=== PATIENT | male | born 1950 | race Caucasian/White ===

== ENCOUNTER 2019-12-28 07:42 | Outpatient (CLI) | payer MEDICARE, SELFPAY ==
--- NOTE | ~2019-12-28 | CT_ITS ---
EXAMINATION: CT soft tissue neck w con DATE: 12/28/2019 08:39 INDICATION: Neck mass. TECHNIQUE: Computed tomography (CT) of the neck was performed with 75 mL Omnipaque-350 intravenous co ntrast. Automated exposure control and iterative reconstruction technique were employed. The dose-ronald gth product was 486.01 mGy-cm. COMPARISON: None FINDINGS: In the posterior neck to the right of midline, there is a 2.5 x 2.0 cm subepidermal mass wi th attenuation of 19 HU. There is plaque in the proximal internal carotid arteries with less than 50% stenosis relative to normal distal artery lumen diameters. There are no pathologically enlarged lymp h nodes. There is mild mucosal thickening in the paranasal sinuses. The mastoid air cells are normal. There is moderate cervical spondylosis. IMPRESSION: 1. 2.5 cm subepidermal mass in right posterior neck, likely a sebaceous cyst. Reviewed, dictated and finalized at location A. PHYSICIAN
[2019-12-28 08:29] LABS: Blood Urea Nitrogen 28 mg/dL (8-26); Estimated Glomerular Filt Rate 35
== END 2019-12-28 07:43 | disposition home or self-care (01) ==
PROVIDERS: PCP Internal Medicine; Visit Provider Surgery
DX: R22.1 Localized swelling, mass and lump, neck (principal)
CPT/HCPCS: 70491; Q9967

== ENCOUNTER 2020-01-16 10:06 | Outpatient (CLI) | payer MEDICARE, SELFPAY ==
--- NOTE | 2020-01-16 10:14 | ECG_ITS ---
Measurements Intervals [place] Rate: 68 P: 14 SC: 151 QRS: -35 QRSD: 92 T: 19 QT: 384 QTc: 411 Interpretive Statements SINUS RHYTHM LEFT AXIS DEVIATION POOR R WAVE PROGRESSION, ANTERIOR LEADS BORDERLINE ECG Electronically Signed On 01-16-2020 10:33:33 CONTACT LENS INSPECTOR by Norbert Mcgrath D.O.
[2020-01-16 10:44] LABS: Blood Urea Nitrogen 27 mg/dL (9-20); Calcium 9.5 mg/dL (8.4-10.2); Carbon Dioxide 31 mmol/L (22-30); Chloride 96 mmol/L (98-107); Estimated Glomerular Filt Rate 43; Glucose 198 mg/dL (75-110); Potassium 4.9 mmol/L (3.4-5.0); Sodium 139 mmol/L (137-145)
[2020-01-16 10:46] LABS: Basophils Absolute Auto 0.1 K/mm3 (0.0-0.1); Basophils Percent Auto 0.8 % (0.2-1.2); Eosinophils Absolute Auto 0.2 K/mm3 (0-0.3); Eosinophils Percent Auto 2.1 % (0-4.4); Hematocrit 55.9 % (42.0-52.0); Hemoglobin 17.8 g/dL (14.0-18.0); Immature Granulocyte Absolute 0.05 K/mm3 (0.00-0.031); Immature Granulocyte Percent A 0.7 % (0-0.5); Lymphocytes Absolute Auto 1.11 K/mm3 (0.9-3.2); Lymphocytes Percent Auto 14.8 % (18.3-44.2); Mean Corpuscular HGB Conc 31.8 g/dl (32-36); Mean Corpuscular Hemoglobin 26.4 pg (26-34); Mean Corpuscular Volume 83.1 fl (80-100); Mean Platelet Volume 9.2 fl (7.4-10.4); Monocytes Absolute Auto 0.5 K/mm3 (0.1-0.6); Monocytes Percent Auto 6.7 % (2.6-8.5); Neutrophils Absolute Auto 5.6 K/mm3 (1.3-6.7); Neutrophils Percent Auto 74.9 % (45.5-73.1); Platelet Count Result 180 k/mm3 (150-375); Red Blood Count 6.73 M/mm3 (4.6-6.20); Red Cell Distribution Width 16.7 % (11.5-14.5); White Blood Count 7.5 K/mm3 (4.5-10.0)
== END 2020-01-16 10:07 | disposition home or self-care (01) ==
LOC: ANHSURGERY 10:14
PROVIDERS: Anesthesiology; PCP Internal Medicine; Visit Provider Surgery
DX: I10 Essential (primary) hypertension (principal); E11.9 Type 2 diabetes mellitus without complications; R22.1 Localized swelling, mass and lump, neck; R94.31 Abnormal electrocardiogram [ECG] [EKG]
CPT/HCPCS: 36415; 80048; 85025; 93005

== ENCOUNTER 2020-01-28 00:41 | Day surgery (SDC) | payer MEDICARE, SELFPAY ==
[2020-01-11 15:05] VITALS: BMI 32.3
[2020-01-28] VITALS (7 sets, daily range): BP systolic 97–120; BP diastolic 40–71; PULSE 72–105; RESP 16–20; TEMP 36.2–36.8; O2SAT 96–100
--- NOTE | 2020-01-28 10:19 | PM.HPGS ---
History of Present Illness History of Present Illness Consent: Risks, benefits, and alternatives of removal of a subcutaneous mass posterior neck have been discussed and questions answered. Patient agrees to proceed with procedure. Chief complaint: Neck Mass Narrative: Jean Downey is a 69 year old male that presented to the office at the request of Dr Martinez about 1 month ago for an evaluation of a hernia and a mass on neck. Patient reports he first noticed a bulge just above his umbilicus about 4-5 years ago. He reports that bulge causes him no pain and he notices it moves when he goes from getting up from sitting or laying down. Patient reports that the bulge is there everyday and nothing seems to really help reduce it bulge. He reports that he believes it is slightly bigger now than when he first noticed it however it is more psychologic than physical pain or discomfort. He reports that he has lost about 10 pounds over the last year and is continuing to try to lose weight. Patient reports that he first noticed the mass on his neck more than 15 years ago. Patient reports that he had a cyst removed in the area twice in the past but reports he has noticed the mass coming back. He reports that the first time it was removed was because it was draining. He reports that this was more than 15 years ago. He reports it was removed while inflamed and he is unsure if he was put on antibiotics prior to having the excision. He reports about 4 year later he noticed a bump and it was annoying he reports he contacted the surgeon and they removed another cyst and tissue. He reports that at that time the area is not draining. He reports that The area has never been infected or has drained this time. He reports that there is no pain. Besides having the cyst removed twice on his neck, only other surgical history includes a quadryple bypass about 7 years ago. Other medical history includes diabetes, depression, hypertension, and high cholesterol. Review of Systems Constitutional: Constitutional: Reports no additional constitutional complaints, Reports fatigue and Denies malaise Eyes: Eyes: Denies change in vision and Denies loss of vision ENT: Reports Normal hearing present, Denies change in voice, Denies dizziness, Denies hoarseness and Denies sore throat Cardiovascular: Cardiovascular: Denies chest pain, Denies leg edema and Denies dyspnea Respiratory: Respiratory: Denies cough, Denies dyspnea and Denies wheezing Gastrointestinal: Gastrointestinal: Denies hematochezia, Denies change in bowel habits and Denies heartburn Comments: known diastasis recti Genitourinary: Genitourinary: Denies urinary frequency and Denies urinary incontinence Musculoskeletal: Musculoskeletal: Reports other (No calf swelling or edema) Integumentary/Breasts: Skin/Breast: Reports system reviewed and no additional complaints, except as docu Neurologic: Reports Normal hearing present, Denies confusion, Denies dizziness, Denies loss of vision, Denies memory loss and Denies seizure-like activity Psychiatric: Psychiatric: Denies confusion, Denies depression and Denies memory loss Endocrine: Endocrine: Denies cold intolerance and Reports fatigue Hematologic/Lymphatic: Hematologic/Lymphatic: Denies easy bleeding and Denies easy bruising Allergic/Immunologic: Allergic/Immunologic: Denies wheezing PMFSH Past Medical History Medical History (Updated 01/28/20 @ 11:15 by Ion Mccurdy DO) CAD (coronary artery disease) >4 METs Depression Diabetes (Unknown) High cholesterol Hypertension Surgical History Surgical History History of quadruple bypass about 2014 Social History Social History (Updated 12/26/19 @ 08:28 by Pao Gray) Smoking status: Former smoker Tobacco type: cigarettes Smoking end date: 11/21/99 Alcohol intake: never Gender identity (if verbalized by the patient): Male M
[2020-01-28] MEDS: LACTATED RINGERS 1,000 ML 30 ML IV CONT ×2 (10:40→14:40)
[2020-01-28 10:46] LABS: Glucose Point of Care 79 (65-105)
--- NOTE | 2020-01-28 11:13 | WPDANESEPPF ---
Anes - Initial Pre Proc Eval Procedure: Operation Date: 01/28/20 12:00 Proposed Procedures p Excision Subcutaneous Mass Posterior Neck - Domingo Mireles MD Date/Time: 01/28/20 11:13 Surgeon: Domingo Mireles MD Pre Op Diagnosis: Neck Mass Patient Data Age: 69 Gender: M Height: 1.66 m Weight: 90.05 kg Last Vital Signs Temp 36.8 C 01/28/20 10:46 Pulse 72 01/28/20 10:46 Resp 20 01/28/20 10:46 BP 114/71 01/28/20 10:46 Pulse Ox 100 01/28/20 10:46 Allergies Allergy/AdvReac Type Severity Reaction Status Date / Time metformin Allergy Unknown DIZZINESS Verified 01/11/20 14:38 Iftiyky-Hqb-Eya Reductase Allergy Unknown UNABLE TO Verified 01/11/20 14:38 Inhibitor FOCUS Home Medications Medication Instructions Recorded Confirmed Type ezetimibe 10 mg tablet 10 mg PO DAILY 12/20/19 01/11/20 History rosuvastatin 5 mg tablet 2.5 mg PO DAILY tablet 12/20/19 01/28/20 History aripiprazole 5 mg tablet 5 mg PO DAILY 12/26/19 01/28/20 History aspirin 81 mg tablet,delayed 81 mg PO DAILY 12/26/19 01/28/20 History release canagliflozin 100 mg tablet 100 mg PO DAILY 12/26/19 01/28/20 History carbidopa 25 mg-levodopa 100 mg 1 tablet PO BID 12/26/19 01/28/20 History disintegrating tablet cholecalciferol (vitamin D3) 3,000 3,000 unit PO DAILY 12/26/19 01/28/20 History unit tablet cyanocobalamin (vitamin B-12) 500 500 mcg PO DAILY 12/26/19 01/28/20 History mcg lozenges docusate sodium 100 mg capsule 100 mg PO DAILY PRN 12/26/19 01/28/20 History duloxetine 60 mg capsule,delayed 60 mg PO DAILY 12/26/19 01/28/20 History release fenofibrate nanocrystallized 48 mg 48 mg PO DAILY 12/26/19 01/11/20 History tablet insulin degludec 100 unit/mL (3 20 unit SUB-Q DAILY 12/26/19 01/28/20 History mL) subcutaneous pen lisinopril 2.5 mg tablet 2.5 mg PO DAILY 12/26/19 01/28/20 History sertraline 100 mg tablet 150 mg PO DAILY tablet 12/26/19 01/28/20 History semaglutide [Ozempic] 0.25 mg SUBCUT WEEKLY 01/11/20 01/11/20 History Laboratory Tests 01/28/20 10:43 POC Capillary Glucose 79 mg/dl mg/dl (65-105) ECG: SINUS RHYTHM LEFT AXIS DEVIATION POOR R WAVE PROGRESSION, ANTERIOR LEADS ROLANDO Patient hx anesthesia problems: none Family hx anesthesia problems: none PMFSH Past Medical History Medical History (Updated 01/28/20 @ 11:15 by Ion Mccurdy DO) CAD (coronary artery disease) >4 METs Depression Diabetes (Unknown) High cholesterol Hypertension Surgical History Surgical History History of quadruple bypass about 2014 Social History Social History (Updated 12/26/19 @ 08:28 by Pao Gray) Smoking status: Former smoker Tobacco type: cigarettes Smoking end date: 11/21/99 Alcohol intake: never Gender identity (if verbalized by the patient): Male Anes - Eval Final PreProcedure Day of Procedure 01/28/20 11:13 Patient weight: obese Heart: regular rate and rhythm Lungs: clear to auscultation and normal air movement Airway: Mallampati scale class III and other (Was told by previous anesthesia provider that he needs a small ETT) Neurological: alert and oriented Last oral intake: >/= 8 hours ASA classification: III Emergent: no Anesthetic plan: proceed Anesthesia type and monitoring: general ETT and standard monitoring Informed Consent: The patient's anesthetic plan and its attendant risks and benefits were discussed with the patient/family/POA. Questions were solicited and answers provided to the satisfaction of the patient/family/POA.
[2020-01-28] MEDS: ceFAZolin 2 GM/D5W 50 ML 2 GM/50 ML BAG IVPB (13:13)
[2020-01-28] MEDS: LIDO 2%/EPINEPHRINE 1:100,000 20 ML VIAL INFILTRATE (13:48)
--- NOTE | 2020-01-28 14:40 | PM.PROC ---
Procedure Note - Detailed Date of procedure: 01/28/20 Pre-op diagnosis: Neck Mass Post-op diagnosis: same Procedure performed: Excision of posterior neck mass (suspected epidermal cyst) Description of procedure: Patient was brought to the operating room and placed in the supine position. Because of a history of a difficult airway anesthesia chose to proceed to endotracheal intubation. At this was accomplished with the video laryngeal scope. The patient was then fully turned onto his left side to expose the back of his neck. Then with the patient in the left lateral decubitus position we proceeded. After a surgical time out confirming patient and procedure the patient was prepped and draped in the usual sterile fashion. Local anesthetic was administered subcutaneously utilizing 2% xylocaine with epinephrine. More this was placed into the surrounding tissues after the excision. The lesion measured 2.5 by 3.5. An elliptical incision was made around the lesion taking a thin margin circumferentially. I dissected down to the deep subcutaneous tissues and then completely excised the lesion. As I was excising toward the patient's left side or medial we did run into a small amount of fluid that was slightly cloudy suspected to be cyst contents. I widened my incision a little bit and completely excised the cyst. On the deep right side we also entered the cyst slightly and some inspissated thick material did come out of the cyst but was suctioned away immediately. Bleeding was controlled with electrocautery. Then prior to closure we irrigated with approximately 60 cc of saline and suctioned all this fluid away. Hemostasis was again checked and when it was okay we proceeded with closure. The wound was closed in several layers. An un-dyed 2-0 vicryl deep dermal and some in the subcutaneous tissues underlying this area were applied. Then because there was some drainage and there was some tension on the wound I used interrupted vertical mattress and simple sutures of 3-0 nylon to close the skin. Dressings were applied using Telfa 4x4s and Medipore tape. Patient tolerated this well. Anesthesia: GETA and local (2% xylocaine with epinephrine) Surgeon: Domingo Mireles MD Education Site Manager: MEETA Lanza, OR 1st assist Estimated blood loss (mL): 20 Drains: No Packing: No Pathology: yes (Skin overlying subcutaneous mass of the posterior neck ( suspected epidermal cyst)) Complications: No immediate complications Condition: stable Disposition: PACU Findings: A large thick epidermal cyst with significant scarring around it. Minimal intrusion into the cyst occurred but I believe it was otherwise completely excised.
--- NOTE | 2020-01-28 14:56 | SUR.PHASEI ---
1456 - DR. GAGNON AT BEDSIDE TALKING WITH PT.
--- NOTE | 2020-01-28 15:26 | SUR.PHASEII ---
Pts blood sugar is 63 Gave pt rene crackers and soda
[2020-01-28 15:27] LABS: Glucose Point of Care 63 (65-105)
== END 2020-01-28 16:15 | disposition home or self-care (01) ==
PROVIDERS: PCP Internal Medicine; Visit Provider Surgery
PROC: (CPT 11426; principal; 2020-01-28 12:00)
DX: L72.0 Epidermal cyst (principal); I10 Essential (primary) hypertension; E78.00 Pure hypercholesterolemia, unspecified; E11.9 Type 2 diabetes mellitus without complications; I25.10 Atherosclerotic heart disease of native coronary artery without angina pectoris; F32.9 Major depressive disorder, single episode, unspecified; Z79.4 Long term (current) use of insulin; Z79.82 Long term (current) use of aspirin; Z87.891 Personal history of nicotine dependence; E66.9 Obesity, unspecified; Z68.32 Body mass index [BMI] 32.0-32.9, adult
CPT/HCPCS: 11426; 12042; 88304; J0131; J0330; J0690; J2250; J2405; J2704; J3010; J7120